=== PATIENT | male | born 1945 | race Asian ===

== ENCOUNTER 2022-01-24 07:54 | Emergency (ER) | payer OTHER, MEDICAID ==
[~2022-01-24] VITALS: Ht 160 cm; Wt 54.4 kg
--- NOTE | 2022-01-24 08:05 | NUR ---
Patient to ER bed 6 to gown for evaluation. Side rails up. Report given to Lida AMATO.
--- NOTE | 2022-01-24 08:06 | NUR ---
Pt was brought in by daughter c/o urinary retention and related discomfort x2 days. Pt has hx of urinary retention possibly r/t BPH, daughter is unsure. Pt is Mandarin speaking, daughter was able to translate. Pt is A&Ox4, calm and cooperative, VSS. Care will be provided as ordered.
[2022-01-24 08:10] VITALS: BP_SYST 147
--- NOTE | 2022-01-24 08:15 | NUR ---
ER at bedside examining patient.
--- NOTE | 2022-01-24 08:19 | NUR ---
#16 FR Blas catheter with use of sterile technique. Immediate return of 500 cc straw color urine noted. Bedside drainage bag placed below level of bladder. Urine sample collected and sent to lab. Pt tolerated procedure well. Patient arrived with blas in place, changed due to standard of practice prior to admission. Patient unable to toilet self.
--- NOTE | 2022-01-24 09:01 | NUR ---
Patient given written and verbal discharge instructions and verbalizes understanding. ER Dr. Benito OLIVARES discussed with patient the results and treatment provided. Patient in stable condition. ID arm band removed. Patient educated on pain management and to follow up with PMD. Pain Scale 0/10. Opportunity for questions provided and answered. Medication side effect fact sheet provided.
[2022-01-24 09:02] VITALS: BP_SYST 121
== END 2022-01-24 09:02 | disposition home or self-care (01) ==
LOC: SED 07:54
DX: R33.9 Retention of urine, unspecified (principal); R10.30 Lower abdominal pain, unspecified; Z79.899 Other long term (current) drug therapy
CPT/HCPCS: 99284